=== PATIENT | female | born 1945 | race Caucasian/White ===

== ENCOUNTER → 2017-07-14 | Outpatient (CLI) | payer MEDICARE, BC ==
--- NOTE | 2017-07-16 10:44 | MAM ---
EXAM DESCRIPTION: 3D Screening BILATERAL : Digital Mammography. CLINICAL HISTORY: 72 years Female SCREENING . No complaints. No family history of breast cancer. Postmenopausal. Taking HRT 5 or more years ago.. COMPARISON: 2-D digital screening bilateral studies on 07/07/2016 and 07/04/2015.. Report from prior examination also reviewed. TECHNIQUE: Bilateral CC and MLO projection full-field images, 3-D tomosynthesis digital mammographic technique. Also bilateral synthesized CC/ MLO full-field images. CAD not utilized. FINDINGS: The breast parenchymal density pattern is: Scattered areas of fibroglandular density. No skin thickening or nipple retraction bilateral solitary microcalcifications. Stable focal asymmetry upper outer quadrant middle third right breast. No focal, stellate mass or density, new focal asymmetry , and no suspicious microcalcifications bilaterally. Stable mammograms compared to prior study, taking into account differences in mammographic technique IMPRESSION: BI-RADS CATEGORY: 2 - BENIGN FINDINGS. FOLLOW UP: Routine digital bilateral screening, one year interval from June 2017. Written communication explaining the IMPRESSION and follow-up, will be mailed to the patient and referring health care provider. According to the [employer], yearly mammograms are recommended starting at age 40 and continuing as long as a woman is in good health. Any breast change noted on a breast self-exam should be reported promptly to the patient's healthcare provider. Breast MRI is recommended for women with an approximately 20-25% or greater lifetime risk of breast cancer, including women with a strong family history of breast or ovarian cancer and women who have been treated for Hodgkin's disease. A negative mammographic report should not delay tissue diagnosis in patients with significant clinical history or physical findings. Extremely dense breast tissue limits the sensitivity of digital mammography. Electronically signed by: Murphy Patel MD 07/16/2017 10:42 AM [facility]
== END ==
LOC: MAMMO 10:35
PROVIDERS: ATTEND Family Medicine
DX: Z12.31 Encounter for screening mammogram for malignant neoplasm of breast (principal)
CPT/HCPCS: 77063; G0202

== ENCOUNTER → 2017-11-30 | Outpatient (CLI) | payer MEDICARE, BC | END | disposition home or self-care (01) | LOC: GMAM 14:11 | PROVIDERS: ATTEND Family Medicine | DX: R31.29 Other microscopic hematuria (principal) ==

== ENCOUNTER → 2018-07-19 | Outpatient (CLI) | payer MEDICARE, BC ==
--- NOTE | 2018-07-19 18:10 | MAM ---
EXAM DESCRIPTION: 3D Screening BILATERAL : Digital Mammography. CLINICAL HISTORY: 73 years Female SCREENING . No complaints or personal history of breast cancer. No family history of breast cancer. Childbirth. Postmenopausal. Has taken HRT 5 or more years ago.. Lifetime risk of developing breast cancer (Tyrer-Cuzick model)(%): 3.0. COMPARISON: Bilateral screening digital breast tomosynthesis 07/14/2017 TECHNIQUE: Bilateral CC and MLO projection full-field images, digital tomosynthesis mammographic technique. Bilateral digital 2-D full-field MLO images. CAD not available for tomosynthesis or 2-D images. FINDINGS: The breast parenchymal density pattern is: Scattered areas of fibroglandular density. No skin thickening or nipple retraction. Bilateral solitary microcalcifications. Focal asymmetry in the middle third of the left breast is stable. Left axillary lymph node. No new focal, stellate mass or density, focal asymmetry , and no suspicious microcalcifications bilaterally. Stable mammograms compared to prior study. IMPRESSION: Benign exam. BIRAD CATEGORY: 2 BENIGN FINDINGS. RECOMMENDATIONS: FOLLOW UP: Routine digital bilateral mammographic screening, one year interval from June 2018. Written communication explaining the IMPRESSION and follow-up, will be mailed to the patient and referring health care provider. According to the [employer], yearly mammograms are recommended starting at age 40 and continuing as long as a woman is in good health. Any breast change noted on a breast self-exam should be reported promptly to the patient's healthcare provider. Breast MRI is recommended for women with an approximately 20-25% or greater lifetime risk of breast cancer, including women with a strong family history of breast or ovarian cancer and women who have been treated for Hodgkin's disease. A negative mammographic report should not delay tissue diagnosis in patients with significant clinical history or physical findings. Extremely dense breast tissue limits the sensitivity of digital mammography. Electronically signed by: Murphy Patel MD 07/19/2018 6:09 PM [employer]
== END ==
LOC: MAMMO 08:00
PROVIDERS: ATTEND Family Medicine
DX: Z12.31 Encounter for screening mammogram for malignant neoplasm of breast (principal)

== ENCOUNTER → 2018-10-05 | Outpatient (CLI) | payer MEDICARE, BC ==
--- NOTE | 2018-10-05 15:44 | MRI ---
EXAM DESCRIPTION: MRI right shoulder CLINICAL HISTORY: Shoulder pain. Rotator cuff tear. COMPARISON: None. TECHNIQUE: Multiplanar, multisequence MR images of the right shoulder FINDINGS: Moderate acromion clavicular osteoarthritis. Anterior lateral downsloping of the acromion with a large, 7 mm subacromial enthesophyte and contiguous inferior lateral acromial spur Full-thickness near complete supraspinatus tendon tear sparing a few thin anterior fibers. Majority of the tendon torn and retracted to the mid humeral level. Muscle volume mildly decreased with grade 1 fatty infiltration High-grade partial articular and interstitial tear of the infraspinatus tendon sparing thin bursal fibers. Muscle volume is mildly decreased with grade 1 fatty infiltration Teres minor tendon and muscle are normal. Subscapularis tendinosis with low-grade partial articular and interstitial tear. Moderate muscle volume loss with grade 1 fatty infiltration Long head biceps tendon is thickened along the mid to lower bicipital groove and attenuated in the upper bicipital groove. Tendinosis and interstitial partial tear of the tendon, intra-articular and upper bicipital groove. Contiguous tear of the labral anchor/partial detachment. No acute labral detachment. No full-thickness glenoid chondrosis or chronic osteochondral lesion. Small region of high-grade humeral chondrosis superior medial over about 7 mm. No subchondral marrow edema. Full-thickness chondrosis over the superior lateral humeral head near the oblique facet greater tuberosity. Glenohumeral joint effusion with contiguous large volume of fluid in the subacromial subdeltoid bursa. A few thin septations from chronic bursal synovitis IMPRESSION: Full-thickness near complete supraspinatus tendon tear with retraction. Contiguous high-grade partial tear of the infraspinatus tendon sparing thin bursal fibers Biceps tendinosis/interstitial partial tear with contiguous degeneration of the labral anchor Electronically signed by: Zach Dunn MD 10/05/2018 3:41 PM [facility]
== END ==
LOC: MRI 11:00
PROVIDERS: ATTEND Family Medicine
DX: M75.101 Unspecified rotator cuff tear or rupture of right shoulder, not specified as traumatic (principal); M75.91 Shoulder lesion, unspecified, right shoulder

== ENCOUNTER → 2018-11-07 | Outpatient (CLI) | payer MEDICARE, BC | LOC: GMAM 17:00 | PROVIDERS: ATTEND Family Medicine | DX: R10.84 Generalized abdominal pain (principal) ==

== ENCOUNTER → 2019-07-20 | Outpatient (CLI) | payer MEDICARE, BC ==
--- NOTE | 2019-07-21 17:47 | MAM ---
EXAM DESCRIPTION: 3D Screening BILATERAL : Digital Mammography. CLINICAL HISTORY: 74 years Female ANNUAL SCREENING . No complaints. No personal or family history of breast cancer. Menarche age 16. First childbirth age 20. Menopausal age 32. HRT 5 or more years ago.. Lifetime risk of developing breast cancer (Tyrer-Cuzick model)(%): 2.9. COMPARISON: Bilateral screening digital breast tomosynthesis 19 July 2018 and 14 July 2017.. No prior reports available. TECHNIQUE: Bilateral CC and MLO projection full-field images, digital tomosynthesis mammographic technique. Bilateral digital 2-D full-field MLO images. CAD not available for tomosynthesis or 2-D images. FINDINGS: The breast parenchymal density pattern is: Scattered areas of fibroglandular density. No skin thickening or nipple retraction. No new focal, stellate mass or density, focal asymmetry , and no suspicious microcalcifications bilaterally. Stable mammograms compared to prior study. IMPRESSION: BI-RADS CATEGORY: 1 - NEGATIVE FOLLOW UP: Routine digital bilateral screening, one year interval from June 2019. Written communication explaining the findings and follow-up, will be mailed to the patient and referring health care provider. According to the [employer], yearly mammograms are recommended starting at age 40 and continuing as long as a woman is in good health. Any breast change noted on a breast self-exam should be reported promptly to the patient's healthcare provider. Breast MRI is recommended for women with an approximately 20-25% or greater lifetime risk of breast cancer, including women with a strong family history of breast or ovarian cancer and women who have been treated for Hodgkin's disease. A negative mammographic report should not delay tissue diagnosis in patients with significant clinical history or physical findings. Extremely dense breast tissue limits the sensitivity of digital mammography. Electronically signed by: Murphy Patel MD 07/21/2019 5:45 PM [employer]
== END ==
LOC: MAMMO 08:00
PROVIDERS: ATTEND Family Medicine
DX: Z12.31 Encounter for screening mammogram for malignant neoplasm of breast (principal)

== ENCOUNTER → 2019-10-06 | Outpatient (CLI) | payer MEDICARE, BC | LOC: GMAM 10:18 | PROVIDERS: ATTEND Family Medicine | DX: M79.645 Pain in left finger(s) (principal); R59.0 Localized enlarged lymph nodes ==

== ENCOUNTER → 2020-07-29 | Outpatient (CLI) | payer MEDICARE, BC ==
--- NOTE | 2020-07-30 16:41 | MAM ---
EXAM DESCRIPTION: 3D Screening BILATERAL : Digital Mammography. CLINICAL HISTORY: 75 years Female screening . No complaints. No family history breast cancer. Menarche age 16. Childbirth age 20. Menopause age unknown. HRT 5 or more years ago.. Lifetime risk of developing breast cancer (Tyrer-Cuzick model)(%): 2.7. COMPARISON: Bilateral screening digital breast tomosynthesis June 2019 and June 2018. TECHNIQUE: Bilateral CC and MLO projection full-field images, digital tomosynthesis mammographic technique. Bilateral digital 2-D full-field MLO images. CAD available for 2-D images. FINDINGS: The breast parenchymal density pattern is: Scattered areas of fibroglandular density. Axillary nodes. Solitary microcalcifications. No skin thickening or nipple retraction No new focal, stellate mass or density, focal asymmetry , and no suspicious microcalcifications bilaterally. Stable mammograms compared to prior study. IMPRESSION: Benign exam. BIRAD CATEGORY: 2 BENIGN FINDINGS. RECOMMENDATIONS: FOLLOW UP: Routine digital bilateral mammographic screening, one year interval from July 2020. Written communication explaining the IMPRESSION and follow-up, will be mailed to the patient and referring health care provider. According to the [employer], yearly mammograms are recommended starting at age 40 and continuing as long as a woman is in good health. Any breast change noted on a breast self-exam should be reported promptly to the patient's healthcare provider. Breast MRI is recommended for women with an approximately 20-25% or greater lifetime risk of breast cancer, including women with a strong family history of breast or ovarian cancer and women who have been treated for Hodgkin's disease. A negative mammographic report should not delay tissue diagnosis in patients with significant clinical history or physical findings. Extremely dense breast tissue limits the sensitivity of digital mammography. Electronically signed by: Murphy Patel MD 07/30/2020 4:40 PM [employer]
== END ==
LOC: MAMMO 08:49
PROVIDERS: ATTEND Family Medicine
DX: Z12.31 Encounter for screening mammogram for malignant neoplasm of breast (principal)

== ENCOUNTER → 2020-08-08 | Outpatient (CLI) | payer MEDICARE, BC | LOC: GMAM 17:31 | PROVIDERS: ATTEND Family Medicine | DX: R79.82 Elevated C-reactive protein (CRP) (principal) ==